=== PATIENT | male | born 2000 | race Caucasian/White ===

== ENCOUNTER 2023-10-14 10:23 | Emergency (ER) | payer OTHER ==
[~2023-10-14] VITALS: Ht 175.3 cm; Wt 94.5 kg
[2023-10-14 10:24] VITALS: TEMP 98.8
[2023-10-14] MEDS ORDERED: CYCL7.5T32 PO (10:36)
[2023-10-14] MEDS ORDERED: IBUP-1022 PO (10:37)
[2023-10-14 11:36] VITALS: BP 125/67; O2SAT 100
[2023-10-14] MEDS ORDERED: ONDA4TAB6 PO (13:38)
[2023-10-14] MEDS ORDERED: VENTAER INH (13:38)
== END 2023-10-14 13:51 | disposition home or self-care (01) ==
LOC: M ED 10:23
DX: U07.1 COVID-19 (principal); Z88.5 Allergy status to narcotic agent

== ENCOUNTER 2024-02-02 09:24 | Emergency (ER) | payer OTHER ==
[~2024-02-02] VITALS: Ht 175.3 cm; Wt 93.5 kg
[~2024-02-02 09:24] MED LIST: CYCL7.5T32 PO; IBUP-1022 PO; ONDA4TAB6 PO; VENTAER INH
[2024-02-02] MEDS ORDERED: METH-1164 PO (09:37)
[2024-02-02 10:14] LABS: BASO % 0.5 % (0.0-1.0); EOS # 0.2 10^3/uL (0.0-0.5); EOS % 2.3 % (0.0-3.0); HEMATOCRIT 45.2 % (42.0-52.0); LYMPH # 1.6 10^3/uL (1.5-5.0); LYMPH % 24.8 % (24.0-44.0); MEAN CORPUSCULAR HEMOGLOBIN 30.5 pg (27.0-33.0); MEAN CORPUSCULAR HGB CONC 35.4 g/dl (32.0-36.5); MEAN CORPUSCULAR VOLUME 86.3 fl (80.0-96.0); MONO # 1.1 10^3/uL (0.0-0.8); MONO % 17.3 % (2.0-8.0); NEUTROPHILS # 3.6 10^3/uL (1.5-8.5); NEUTROPHILS % 54.9 % (36.0-66.0); PLATELET COUNT, AUTOMATED 280 10^3/uL (150-450); RED BLOOD COUNT 5.24 10^6/uL (4.30-6.10); WHITE BLOOD COUNT 6.5 10^3/uL (4.0-10.0)
[2024-02-02 10:44] LABS: LIPASE 30 U/L (12-53)
[2024-02-02 10:46] LABS: AMYLASE 43 U/L (30-118)
[2024-02-02 10:47] LABS: ALBUMIN 3.7 G/DL (3.2-5.2); ALKALINE PHOSPHATASE 43 U/L (46-116); ALT/SGPT 214 U/L (7.0-40); AST/SGOT 89 U/L (<34); BILIRUBIN,DIRECT 0.5 MG/DL (<0.4); BILIRUBIN,TOTAL 0.9 MG/DL (0.3-1.2); BLOOD UREA NITROGEN 13 MG/DL (9-23); CALCIUM LEVEL 8.6 MG/DL (8.5-10.1); CARBON DIOXIDE LEVEL 30 MMOL/L (20-31); CHLORIDE LEVEL 102 MMOL/L (98-107); CREATININE FOR GFR 0.96 MG/DL (0.70-1.30); GLOMERULAR FILTRATION RATE > 60.0 (>60); GLUCOSE, FASTING 102 MG/DL (60-100); POTASSIUM SERUM 3.6 MMOL/L (3.5-5.1); SODIUM LEVEL 138 MMOL/L (136-145); TOTAL PROTEIN 6.8 G/DL (5.7-8.2)
[2024-02-02] MEDS ORDERED: BENA25CA4 PO (11:52)
[2024-02-02] MEDS: ONDANSETRON 4MG TAB PO ONE (13:32)
[2024-02-02 14:03] LABS: INR 1.16; PROTHROMBIN TIME 14.5 SECONDS (12.5-14.5)
[2024-02-02 14:29] LABS: MONO SCRN NEGATIVE (NEGATIVE)
[2024-02-02 14:58] LABS: HEPATITIS C VIRUS ABY INDEX < 0.02 INDEX (<0.8)
[2024-02-02 14:59] LABS: HEPATITIS B CORE ANTIBODY IGM NEGATIVE (NEGATIVE)
[2024-02-02] MEDS ORDERED: PEPC1TAB5 PO (15:06)
[2024-02-02] MEDS ORDERED: NAPR-837 PO (15:06)
[2024-02-02 15:36] VITALS: BP 138/82; TEMP 98.2; O2SAT 100
== END 2024-02-02 15:38 | disposition home or self-care (01) ==
LOC: M ED 11:30
DX: B19.9 Unspecified viral hepatitis without hepatic coma (principal); Z88.5 Allergy status to narcotic agent; Z79.1 Long term (current) use of non-steroidal anti-inflammatories (NSAID); Z79.891 Long term (current) use of opiate analgesic; Z79.899 Other long term (current) drug therapy

== ENCOUNTER 2024-11-24 12:21 | Emergency (ER) | payer OTHER ==
[~2024-11-24] VITALS: Ht 175.3 cm; Wt 96.8 kg
[~2024-11-24 12:21] MED LIST changes: +BENA25CA4 PO; +METH-1164 PO; +NAPR-837 PO; +ONDA-282 PO; -ONDA4TAB6 PO; +PEPC1TAB5 PO
[2024-11-24 14:48] VITALS: BP 136/83; TEMP 97.8; O2SAT 99
== END 2024-11-24 15:47 | disposition home or self-care (01) ==
LOC: M ED 12:21
DX: S60.221A Contusion of right hand, initial encounter (principal); Y92.9 Unspecified place or not applicable; Y93.9 Activity, unspecified; Y99.0 Civilian activity done for income or pay; Z79.899 Other long term (current) drug therapy